=== PATIENT | female | born 1940 | race Caucasian/White ===

== ENCOUNTER 2016-10-22 21:12 | Inpatient (IN) | payer OTHER ==
--- NOTE | 2016-10-22 21:54 | EDPHY ---
H & P Stated Complaint: LLQ abd pain Time Seen by Provider: 10/22/16 21:56 HPI/ROS: CHIEF COMPLAINT: Abdominal pain HISTORY OF PRESENT ILLNESS: This patient is a 76-year-old female who presents to the Emergency Department complaining of acute abdominal pain with associated nausea beginning at 1500 today. Her pain first presented generalized to her entire abdomen but has since localized to her left lower quadrant. She describes the pain as waxing and waning to moderate severity. She has not identified any alleviating or exacerbating factors for the pain. She presents to the ED following her last bowel movement because she identified blood in her stool. She has been feeling constipated and performed an enema with subsequent bowel movement. She has not been having diarrhea. She does describes mild associated lightheadedness. She denies chest pain, dyspnea, urinary complaints, fever or chills, or any additional complaints. Last colonoscopy was eight years ago and did not reveal any abnormalities at that time. Surgical history includes appendectomy. Few weeks ago she was given amoxicillin for sinusitis. She developed a rash and this medication was discontinued. She is currently taking doxycycline. REVIEW OF SYSTEMS: A ten point review of systems was performed and is negative with the exception of the items mentioned in the HPI. Source: Patient - Personal History Current Tetanus/Diphtheria Vaccine: Yes Current Tetanus Diphtheria and Acellular Pertussis (TDAP): Yes - Medical/Surgical History PMH: 1. Hypertension 2. Asthma 3. Hysterectomy 4. 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 Lives with her . - Physical Exam Exam: General Appearance: Alert. Vital signs reviewed: HR 101, BP 154/74. Eyes: Pupils equal and round, no conjunctival injection, no discharge. Anicteric. ENT, Mouth: Mucous membranes are moist, no oropharyngeal erythema or edema. Neck: No lymphadenopathy, supple. Respiratory: Lungs are clear to auscultation; no wheezes, rales, or rhonchi. Cardiovascular: Regular rate and rhythm; no murmur, rub, or gallop. Not tachycardic at the time of my exam. Gastrointestinal: Abdomen is soft, LLQ tenderness with guarding, no masses or organomegaly, bowel sounds normal. Skin: Warm and dry, no rashes on exposed skin, normal color. Streaks of erythema crossing the midline of the abdomen (site of heating pad used earlier). Rectal: Small flecks of dark stool, with streak of red blood on examining glove. Back: Nontender to palpation over the thoracolumbar spine. No CVAT. Extremities: No lower extremity edema, no calf tenderness or swelling. Neurological: Alert and oriented. Moving all four extremities easily and equally. Psychiatric: Normal affect. Constitutional: Initial Vital Signs Temperature (C) 36.8 C 10/22/16 21:18 Heart Rate 101 H 10/22/16 21:18 Respiratory Rate 16 10/22/16 21:18 Blood Pressure 154/75 H 10/22/16 21:18 O2 Sat (%) 96 10/22/16 21:18 O2 Delivery Mode Room Air Allergies/Adverse Reactions: Penicillins Allergy (Verified 10/22/16 21:15) Home Medications: Medication Instructions Recorded Flonase Nasal [place] 01/25/16 Hydrochlorothiazide 01/25/16 Proventil 01/25/16 Singulair 01/25/16 Doxycycline Monohydrate 10/22/16 Lipitor 10/22/16 Prolia 10/22/16 Medical Decision Making - Diagnostics Imaging Results: Imaging Impressions Abdomen CT 10/22/16 23:12 Impression: 1. Long segment of colitis involving the descending colon. Doubtful for diverticulitis given the featureless pattern of the inflamed colon. Query infectious etiologies such as C. Difficile or inflammatory conditions such as ulcerative colitis. Doubtful for ischemic colitis. 2. No pneumoperitoneum, abscess, or bowel obstruction. Findings discussed with Emergency Department physician, ALETHEA MATTHEWS at 02/2017 0:01. ED Course/Re-evaluation: This 76-year-old female presents with acute onset LLQ abdominal pain beginning at 1300 today and one episode of blood in stool this evening. At time of arrival , she is tachycardic at 101 and hypertensive at 154/75. She has LLQ tenderness with guarding on abdominal exam. Rectal exam reveals specks of dark stool. Will proceed with labs. Pending results, may obtain CT of the abdomen. IV established. 1L IV NS and 4mg IV Zofran administered. Labs obtained. WBC elevated at 25.18. Hemoglobin and hematocrit are within normal ranges. My initial impression was that this was likely diverticulitis. However her CT scan shows colitis involving the descending colon. No evidence of toxic megacolon. This does not appear to be diverticulitis on CT. She underwent serial abdominal exams while in the emergency department and continued with significant left lower quadrant tenderness and guarding. She did not want to take pain medication. She has not had diarrhea, either at home or in the emergency department. However, the appearance of her CT scan is suggestive of Clostridium difficile. She has been on oral antibiotics. She is being admitted to the hospital for continued observation, repeat hemoglobin and hematocrit, antibiotics as warranted. Differential Diagnosis: Differential diagnosis includes but is not limited to diverticulitis, ulcerative colitis, ischemic colitis, infectious colitis, toxic megacolon, urinary tract infection, pyelonephritis. - Data Points Laboratory Results: Laboratory Results 10/22/16 22:34 10/22/16 22:34 10/22/16 10/22/16 10/22/16 22:45 22:34 22:34 WBC 25.18 10^3/uL H 10^3/uL (3.80-9.50) RBC 4.48 10^6/uL 10^6/uL (4.18-5.33) Hgb 14.3 g/dL g/dL (12.6-16.3) Hct 41.9 % % (38.0-47.0) MCV 93.5 fL fL (81.5-99.8) MCH 31.9 pg pg (27.9-34.1) MCHC 34.1 g/dL g/dL (32.4-36.7) RDW 12.5 % % (11.5-15.2) Plt Count 310 10^3/uL 10^3/uL (150-400) MPV 8.8 fL fL (8.7-11.7) Neut % (Auto) 87.6 % H % (39.3-74.2) Lymph % (Auto) 5.5 % L % (15.0-45.0) [place] % (Auto) 5.8 % % (4.5-13.0) Eos % (Auto) 0.1 % L % (0.6-7.6) Baso % (Auto) 0.2 % L % (0.3-1.7) Nucleat RBC Rel Count 0.0 % % (0.0-0.2) Absolute Neuts (auto) 22.08 10^3/uL H 10^3/uL (1.70-6.50) Absolute Lymphs (auto) 1.39 10^3/uL 10^3/uL (1.00-3.00) Absolute Monos (auto) 1.45 10^3/uL H 10^3/uL (0.30-0.80) Absolute Eos (auto) 0.03 10^3/uL 10^3/uL (0.03-0.40) Absolute Basos (auto) 0.04 10^3/uL 10^3/uL (0.02-0.10) Absolute Nucleated RBC 0.00 10^3/uL 10^3/uL (0-0.01) Immature Gran % 0.8 % % (0.0-1.1) Immature Gran # 0.19 10^3/uL H 10^3/uL (0.00-0.10) Sodium 136 mEq/L mEq/L (134-144) Potassium 3.7 mEq/L mEq/L (3.5-5.2) Chloride 100 mEq/L mEq/L (97-110) Carbon Dioxide 24 mEq/l mEq/l (22-31) Anion Gap 12 mEq/L mEq/L (8-16) BUN 27 mg/dL H mg/dL (7-23) Creatinine 0.8 mg/dL mg/dL (0.6-1.0) Estimated GFR > 60 Glucose 138 mg/dL H mg/dL (70-100) Calcium 9.2 mg/dL mg/dL (8.5-10.4) Stool Occult Bld Scrn POSITIVE H (NEGATIVE) Departure - Departure Disposition: [facility] Inpatient Acute Clinical Impression: Colitis Condition: Good Referrals: [facility] [Other] - As per Instructions Report Scribed for: Alethea Matthews Report Scribed by: Ciara Johnson Date of Report: 10/22/16 Time of Report: 21:54 Physician Review and Approval Statement: 10/22/16 21:54 Portions of this note were transcribed by the medical administrative technician. I, Dr. Alethea Matthews, personally performed the history, physical exam, and medical decision- making; and confirmed the accuracy of the information in the transcribed note.
[2016-10-22] MEDS ORDERED: ONDANSETRON 4 MG/2 ML VIAL IVP ONE (22:18)
[2016-10-22 22:44] LABS: % IMMATURE GRANULYOCYTES 0.8 % (0.0-1.1); ABSOLUTE IMMATURE GRANULOCYTES 0.19 10^3/uL (0.00-0.10); ADD DIFF? NO; ADD MORPH? NO; ADD SCAN? NO; ATYPICAL LYMPHOCYTE FLAG 0 (0-99); FRAGMENT RBC FLAG 0 (0-99); HEMATOCRIT 41.9 % (38.0-47.0); HEMOGLOBIN 14.3 g/dL (12.6-16.3); LEFT SHIFT FLG 0 (0-99); LIPEMIA HEMOLYSIS FLAG 90 (0-99); MEAN CELL HEMOGLOBIN 31.9 pg (27.9-34.1); MEAN CELL HEMOGLOBIN CONCENTR. 34.1 g/dL (32.4-36.7); MEAN CELL VOLUME 93.5 fL (81.5-99.8); MEAN PLATELET VOLUME 8.8 fL (8.7-11.7); PLATELET CLUMPS FLAG 0 (0-99); PLATELET COUNT 310 10^3/uL (150-400); RED BLOOD CELL COUNT 4.48 10^6/uL (4.18-5.33); RED CELL DISTRIBUTION WIDTH 12.5 % (11.5-15.2)
[2016-10-22 23:01] LABS: ANION GAP 12 mEq/L (8-16); CALCIUM 9.2 mg/dL (8.5-10.4); CARBON DIOXIDE 24 mEq/l (22-31); CHLORIDE 100 mEq/L (97-110); CREATININE 0.8 mg/dL (0.6-1.0); GLOMERULAR FILTRATION RATE > 60; GLUCOSE 138 mg/dL (70-100); POTASSIUM 3.7 mEq/L (3.5-5.2); SODIUM 136 mEq/L (134-144)
[2016-10-22] MEDS ORDERED: IOPAMIDOL (ISOVUE-300) 100 ML BTL ONE (23:25)
[2016-10-23] MEDS ORDERED: ALBUTEROL 3 ML DEYVIAL IH PRN (01:45)
[2016-10-23] MEDS ORDERED: ONDANSETRON DISINTEGRATING 4 MG TAB PO PRN (01:45)
[2016-10-23] MEDS ORDERED: ONDANSETRON 4 MG/2 ML VIAL IVP PRN (01:45)
[2016-10-23] MEDS ORDERED: HYDROCODONE/APAP 5/325 TAB PO PRN (01:45)
[2016-10-23] MEDS ORDERED: ACETAMINOPHEN 325 MG TAB PO PRN (01:45)
[2016-10-23] MEDS ORDERED: NS 1,000 ML IV SCH (02:00)
--- NOTE | 2016-10-23 04:28 | PDGENHP ---
History and Physical - Chief Complaint bloody diarrhea - History of Present Illness patient is a 76-year-old female with a history of asthma, hypertension, hyperlipidemia and chronic constipation (1 BM/3 days) who presents to the ED with complaint of abdominal pain and bright red blood per rectum. Patient states her abdominal pain started abruptly at around 3:00 p.m. on 10/22, described initially as generalized diffuse abdominal pain which then localized into her left lower quadrant. She initially thought her symptoms were related to her chronic constipation, so she gave herself a fleets enema initially with minimal return. Over the following hours she then began to have episodes of loose stools associated with waves of intense abdominal pain. By 830pm, patient had had 2 episodes of bright red blood per rectum mixed with brown stool. Given this, she decided to come to the ED for further evaluation. She denies any associated lightheadedness, dizziness, chest pain, palpitations or shortness of breath. Of note, 3 weeks ago patient completed a 10 day course of amoxicillin for acute sinusitis. Her sinusitis symptoms had initially improved, but then about a week ago right maxillary sinus pain recurred and she was initiated on doxycycline, currently on day 7 of a 14 day course. She reports a history of 3 normal colonoscopies in her lifetime, most recent about 7 years ago. She has not had an EGD. On arrival to the ED patient was afebrile hemodynamically stable. While in the ED she had an additional 2 bloody bowel movements. Labs revealed stable H&H, elevated WBCs and elevated BUN. CT abdomen and pelvis was then obtained and revealed acute colitis of the descending colon, concerning for infectious etiology. History Information - Allergies/Home Medication List Allergies/Adverse Reactions: Penicillins Allergy (Verified 10/22/16 21:15) Home Medications: Flonase Nasal [place] 01/25/16 [Last Taken Unknown] Hydrochlorothiazide 01/25/16 [Last Taken Unknown] Proventil 01/25/16 [Last Taken Unknown] Singulair 01/25/16 [Last Taken Unknown] Doxycycline Monohydrate 10/22/16 [Last Taken Unknown] Lipitor 10/22/16 [Last Taken Unknown] Prolia 10/22/16 [Last Taken Unknown] I have personally reviewed and updated: family history, medical history, social history, surgical history - Past Medical History Additional medical history: hypertension. hyperlipidemia. asthma. osteoporosis. chronic constipation - Surgical History Additional surgical history: hysterectomy. appendectomy - Family History Positive for: non-pertinent - Social History Smoking Status: Former smoker (smoked x 15 years, quit > 40 years ago) Alcohol Use: Occasionally Drug Use: None Additional social history: Patient lives with her , is a retired [employer] nurse, is independent in all ADLs. Review of Systems ROS: 10pt was reviewed & negative except for what was stated in HPI & below Physical Exam Temp Pulse Resp BP Pulse Ox 36.6 C 89 15 159/66 H 94 10/23/16 01:25 10/23/16 01:25 10/23/16 01:25 10/23/16 01:25 10/23/16 01:25 Constitutional: no apparent distress, appears nourished, not in pain Eyes: PERRL, anicteric sclera, EOMI Ears, Nose, Mouth, Throat: moist mucous membranes, hearing normal, ears appear normal, no oral mucosal ulcers Cardiovascular: regular rate and rhythym, no murmur, rub, or gallop, pulses symmetric bilaterally, No JVD, No edema Peripheral Pulses: 2+: dorsalis-pedis (R), dorsalis-pedis (L) Respiratory: no respiratory distress, no rales or rhonchi, clear to auscultation Gastrointestinal: normoactive bowel sounds, tenderness (in LLQ), distension ( mild), No guarding, No rebound Genitourinary: no bladder fullness, no bladder tenderness Skin: warm, normal color, no rashes or abrasions, no fluctuance, no induration, No mottled Musculoskeletal: full muscle strength, no muscle tenderness, normal joint ROM, no joint effusions Neurologic: AAOx3, sensation intact bilaterally, CN II-XII Intact, No weakness, No numbness, No facial droop Psychiatric: interacting appropriately, not anxious, not encephalopathic, thought process linear Lab Data & Imaging Review 10/22/16 22:34 10/22/16 22:34 WBC 25.18 10^3/uL (3.80-9.50) H 10/22/16 22:34 RBC 4.48 10^6/uL (4.18-5.33) 10/22/16 22:34 Hgb 14.3 g/dL (12.6-16.3) 10/22/16 22:34 Hct 41.9 % (38.0-47.0) 10/22/16 22:34 MCV 93.5 fL (81.5-99.8) 10/22/16 22:34 MCH 31.9 pg (27.9-34.1) 10/22/16 22:34 MCHC 34.1 g/dL (32.4-36.7) 10/22/16 22:34 RDW 12.5 % (11.5-15.2) 10/22/16 22:34 Plt Count 310 10^3/uL (150-400) 10/22/16 22:34 MPV 8.8 fL (8.7-11.7) 10/22/16 22:34 Neut % (Auto) 87.6 % (39.3-74.2) H 10/22/16 22:34 Lymph % (Auto) 5.5 % (15.0-45.0) L 10/22/16 22:34 [place] % (Auto) 5.8 % (4.5-13.0) 10/22/16 22:34 Eos % (Auto) 0.1 % (0.6-7.6) L 10/22/16 22:34 Baso % (Auto) 0.2 % (0.3-1.7) L 10/22/16 22:34 Nucleat RBC Rel Count 0.0 % (0.0-0.2) 10/22/16 22:34 Absolute Neuts (auto) 22.08 10^3/uL (1.70-6.50) H 10/22/16 22:34 Absolute Lymphs (auto) 1.39 10^3/uL (1.00-3.00) 10/22/16 22:34 Absolute Monos (auto) 1.45 10^3/uL (0.30-0.80) H 10/22/16 22:34 Absolute Eos (auto) 0.03 10^3/uL (0.03-0.40) 10/22/16 22:34 Absolute Basos (auto) 0.04 10^3/uL (0.02-0.10) 10/22/16 22:34 Absolute Nucleated RBC 0.00 10^3/uL (0-0.01) 10/22/16 22:34 Immature Gran % 0.8 % (0.0-1.1) 10/22/16 22:34 Immature Gran # 0.19 10^3/uL (0.00-0.10) H 10/22/16 22:34 Sodium 136 mEq/L (134-144) 10/22/16 22:34 Potassium 3.7 mEq/L (3.5-5.2) 10/22/16 22:34 Chloride 100 mEq/L (97-110) 10/22/16 22:34 Carbon Dioxide 24 mEq/l (22-31) 10/22/16 22:34 Anion Gap 12 mEq/L (8-16) 10/22/16 22:34 BUN 27 mg/dL (7-23) H 10/22/16 22:34 Creatinine 0.8 mg/dL (0.6-1.0) 10/22/16 22:34 Estimated GFR > 60 10/22/16 22:34 Glucose 138 mg/dL (70-100) H 10/22/16 22:34 Calcium 9.2 mg/dL (8.5-10.4) 10/22/16 22:34 Stool Occult Bld Scrn POSITIVE (NEGATIVE) H 10/22/16 22:45 Visualized and Interpreted imaging results: Yes Interpretation: CT abd/pelvis: descending colon acute colitis; no evidence of diverticulitis Assessment & Plan Assessment: Patient is a 76-year-old female with a history of asthma, hypertension, hyperlipidemia and recent antibiotic use for sinusitis who presents to the ED with acute abdominal pain associated with bright red blood per rectum. ED evaluation included CT abdomen pelvis which reveals evidence of acute colitis. Plan: # acute colitis Patient's description of loose stools, associated with bright red blood, as well as the CT findings are consistent with acute colitis. Given her recent antibiotic use, there is high suspicion for c diff. Will place on contact precautions, check GI stool pathogen and initiate IV metronidazole treatment. - f/u GI panel - metronidazole 500 mg iv q8h - monitor serial abdominal exams - clear liquid diet # hematochezia Likely originates from lower GI tract, related to acute colitis. However, patient also has history of hemorrhoids, may be hemorrhoidal bleeding given history of chronic constipation and recent fleet enema. H/H are currently stable. Will monitor CBC, coags and stools to attempt to quantify volume of bleeding. If continues to have excessive bleeding, will consult GI for colonoscopy. # SIRS/sepsis On arrival to the ED, patient did meet SIRS criteria with tachycardia and leukocytosis. CT abd/pelvis reveals acute colitis as the presumed source of infection. No evidence of severe sepsis/end organ damage. Will check lactic acid , although BP has remained stable throughout her course. Paitent has been initiated on IV fluids, will also treat colitis with antibiotics as mentioned above. # maxillary sinusitis Patient reports she is currently on D#7 of 14 day course of doxycycline, prescribed for acute maxillary sinusitis. Will continue this to complete her course. No symptoms presently. # asthma No resp symptoms on today's presentation. Will provide nebs prn. # hypertension BP stable. Given possible acute GI bleeding, will hold home BP meds, resume if needed. # dispo: admit to inpatient service for likely > 2 [place] stay #gen: clear liquid diet DVT ppx: SCDs given GI bleeding Full code
[2016-10-23 05:01] VITALS: RESP 14
[2016-10-23 05:26] LABS: % IMMATURE GRANULYOCYTES 0.4 % (0.0-1.1); ABSOLUTE IMMATURE GRANULOCYTES 0.08 10^3/uL (0.00-0.10); ADD DIFF? NO; ADD MORPH? NO; ADD SCAN? NO; ATYPICAL LYMPHOCYTE FLAG 0 (0-99); FRAGMENT RBC FLAG 0 (0-99); HEMATOCRIT 35.4 % (38.0-47.0); HEMOGLOBIN 12.3 g/dL (12.6-16.3); LEFT SHIFT FLG 0 (0-99); LIPEMIA HEMOLYSIS FLAG 90 (0-99); MEAN CELL HEMOGLOBIN 32.4 pg (27.9-34.1); MEAN CELL HEMOGLOBIN CONCENTR. 34.7 g/dL (32.4-36.7); MEAN CELL VOLUME 93.2 fL (81.5-99.8); MEAN PLATELET VOLUME 8.9 fL (8.7-11.7); PLATELET CLUMPS FLAG 0 (0-99); PLATELET COUNT 283 10^3/uL (150-400); RED CELL DISTRIBUTION WIDTH 12.7 % (11.5-15.2)
[2016-10-23 05:46] LABS: APTT 27.5 SEC (23.0-38.0); INR 1.12 (0.83-1.16); PROTIME(PATIENT) 14.3 SEC (12.0-15.0)
[2016-10-23 05:55] LABS: ALANINE AMINOTRANSFERASE 36 IU/L (9-52); ALBUMIN 3.3 g/dL (3.5-5.0); ALKALINE PHOSPHATASE 84 IU/L (38-126); ANION GAP 9 mEq/L (8-16); ASPARTATE AMINOTRANSFERASE 18 IU/L (14-46); BILIRUBIN,TOTAL 0.9 mg/dL (0.1-1.4); CALCIUM 8.6 mg/dL (8.5-10.4); CARBON DIOXIDE 24 mEq/l (22-31); CHLORIDE 106 mEq/L (97-110); CREATININE 0.8 mg/dL (0.6-1.0); GLOMERULAR FILTRATION RATE > 60; GLUCOSE 111 mg/dL (70-100); MAGNESIUM 2.1 mg/dL (1.6-2.3); POTASSIUM 3.6 mEq/L (3.5-5.2); SODIUM 139 mEq/L (134-144); TOTAL PROTEIN 5.7 g/dL (6.3-8.2)
[2016-10-23 07:22] VITALS: BP 152/72; PULSE 78; TEMP 98.1; O2SAT 95
[2016-10-23] MEDS ORDERED: ACETAMINOPHEN 500 MG TAB PO PRN (13:53)
[2016-10-23] MEDS ORDERED: ACETAMINOPHEN/ASA/CAFFEINE 1 EACH TAB PO PRN (13:53)
[2016-10-23] MEDS ORDERED: ALBUTEROL 60 PUFFS/8 GM MDI IH PRN (13:53)
[2016-10-23] MEDS ORDERED: NON-FORMULARY NEW DRUG (Denosumab [Prolia] 60 MG) SQ SCH (14:00)
--- NOTE | 2016-10-23 14:47 | GDS ---
[f rep st] DISCHARGE SUMMARY DISCHARGE DIAGNOSES: 1. Acute colitis, negative stool pathogen panel. 2. Hematochezia due to above. 3. Systemic inflammatory response syndrome. 4. Maxillary sinusitis. 5. Asthma. 6. Hypertension. CONSULTANTS: None. HOSPITAL COURSE: Acute colitis: Patient was admitted to the hospital where a stool pathogen panel was done that was negative. She was started empirically on metronidazole. On the afternoon of hosp ital day 1, the patient's diarrhea is vastly improved. She is tolerating a clear liquid diet. I di scussed options with her, which included further observation care versus discharge home with close o utpatient followup. Patient states that she is feeling better and would like to go home. PHYSICAL EXAMINATION: VITAL SIGNS: On day of discharge, blood pressure 152/72, pulse of 78, respir atory rate 14, O2 sat 95% on room air, temperature afebrile. GENERAL: In no acute distress. HEART : S1, S2. LUNGS: Clear. ABDOMEN: Soft, nontender, nondistended. No guarding or rebound tendern ess. Normoactive bowel sounds. EXTREMITIES: No clubbing or cyanosis. NEURO: Cranial nerves 2-12 grossly intact. No focal motor or sensory deficits. DIAGNOSTICS: On this hospital stay, CT of the abdomen and pelvis, done 10/22/2016. Refer to report f or details. DISCHARGE MEDICATIONS: Please refer to discharge medication reconciliation in [facility] for details as well as the preliminary list. NEW MEDICATION ON HOSPITAL DISCHARGE,: Levsin 0.125 mg p.o. four times daily p.r.n. abdominal spasm . DISCHARGE INSTRUCTIONS: The patient will be discharged from the hospital where she was instructed t o follow up with her primary care provider in the next week. She should seek medical attention soon er if she develops worsening diarrhea or bloody stools. /[id number]/MODL
[2016-10-23] MEDS ORDERED: ATORVASTATIN CALCIUM 10 MG TAB PO SCH (21:00)
[2016-10-23] MEDS ORDERED: FLUTICASONE NASAL 120 SPRAYS/16 GM MDI EACHNARE SCH (21:00)
[2016-10-23] MEDS ORDERED: DOXYCYCLINE HYCLATE 100 MG CAP/TAB PO SCH (21:00)
[2016-10-23] MEDS ORDERED: FLUTICASONE/SALMETER 250/50MCG DISKUS IH SCH (21:00)
[2016-10-24] MEDS ORDERED: ASPIRIN EC 81 MG TAB PO SCH (09:00)
[2016-10-24] MEDS ORDERED: MONTELUKAST SODIUM 10 MG TAB PO SCH (09:00)
[2016-10-24] MEDS ORDERED: LISINOPRIL/HCTZ 10/12.5 MG 1 EA TAB PO SCH (09:00)
[2016-10-24] MEDS ORDERED: CHOLECALCIFEROL VIT D3 1,000 UNITS TAB PO SCH (09:00)
== END 2016-10-23 15:04 | disposition home or self-care (01) | DRG 392 ==
LOC: OBSVTOIN 10-23 01:46 → F3E 10-23 01:50
PROVIDERS: ADMIT Internal Medicine; ATTEND Family Medicine
DX: K52.9 Noninfective gastroenteritis and colitis, unspecified (principal); K92.1 Melena; J32.0 Chronic maxillary sinusitis; J45.909 Unspecified asthma, uncomplicated; I10 Essential (primary) hypertension; E78.5 Hyperlipidemia, unspecified; K59.09 Other constipation
CPT/HCPCS: Q9967